=== PATIENT | female | born 1985 | race Caucasian/White ===

== ENCOUNTER 2021-09-23 14:06 | Outpatient (CLI) | payer OTHER, SELFPAY ==
--- NOTE | 2021-09-23 14:11 | MM_ITS ---
WS: [id number] BILATERAL DIGITAL DIAGNOSTIC MAMMOGRAM MAMMOGRAPHY WITH CAD CLINICAL INFORMATION: RT BREAST LUMP 11 OCLOCK POSITION HISTORY: Right breast lump. Right breast pain. History of recent weight loss. COMPARISON: None. TECHNIQUE: Bilateral CC, MLO, and ML views. FINDINGS: The breasts are composed of extremely dense tissue, which can limit the detection of small underlying mass lesions. Palpable marker upper outer right breast. Dense underlying parenchymal tissue. Ultraso und right breast is pending. Dense breast parenchyma is otherwise unremarkable bilaterally. A few incidental punctate calcificatio ns bilaterally. ULTRASOUND BREAST RIGHT TECHNIQUE: Ultrasound right breast focused area of concern. CLINICAL INFORMATION: RT BREAST LUMP 11 OCLOCK POSITION FINDINGS: Ultrasound right breast in the area of palpable concern 11:00 position. Dense echogenic tissue with m ixed echogenicity nodule measuring 5.8 x 1.5 x 4.3 cm likely represents lipoma or fibroadenolipoma. F indings are probably benign and recommend 6 month follow-up to confirm stability. MM/[place] [id number] IMPRESSION: BI-RADS: 3-Probably Benign FOLLOW UP: 6 Month Follow-up RECOMMEND 6 MONTH FOLLOW-UP RIGHT DIAGNOSTIC MAMMOGRAPHY AND ULTRASOUND TO CONF IRM STABILITY.
== END 2021-09-23 14:07 | disposition home or self-care (01) ==
LOC: RADSHAW 14:07
DX: N63.11 Unspecified lump in the right breast, upper outer quadrant (principal); N64.4 Mastodynia
CPT/HCPCS: 76642; 77066

== ENCOUNTER 2022-04-14 13:08 | Outpatient (CLI) | payer OTHER, SELFPAY ==
--- NOTE | 2022-04-14 13:22 | MM_ITS ---
WS: [id number] RIGHT 3D TOMOSYNTHESIS DIGITAL MAMMOGRAPHY WITH CAD CLINICAL INFORMATION: 6 MO F/U RT LUMP COMPARISON: September 23, 2021 TECHNIQUE: 3 views of the right breast were obtained. FINDINGS: The right breast is composed of heterogeneous fibroglandular density tissue, which can limit the dete ction of small underlying mass lesions. Palpable marker upper outer RIGHT breast. Dense underlying pa renchymal tissue with suggestion of dense ovoid lesion appears stable. Breast parenchyma appears unch anged. Ultrasound is pending. ULTRASOUND BREAST RIGHT TECHNIQUE: Ultrasound right breast focused area of concern. CLINICAL INFORMATION: 6 MO F/U RT LUMP COMPARISON: September 23, 2021 FINDINGS: Ultrasound RIGHT breast in the area of concern at the 11:00 position 3 to 4 cm from the nipple. Dense underlying parenchymal tissue. Incidental benign simple cyst at the 11:00 position 4 cm from the nip ple measuring 6.5 x 4.4 x 7.1 mm. Mixed echogenicity subcutaneous lesion measuring 5.2 x 4.8 x 1.5 cm in the superficial soft tissues a t the 11:00 position 4 cm from the nipple likely representing lipoma or fibroadenolipoma. This is unchanged since September 23, 2021 and probably benign. Considering this lesion is palpable Re commend additional six-month follow-up to confirm stability for at least 12-18 months. MM/[place] [id number] BI-RADS: 3-Probably Benign FOLLOW UP: 6 Month Follow-up Recommend additional six-month follow-up RIGHT diagnostic mammography and ultra sound to confirm at least 12-18 month stability.
== END 2022-04-14 13:09 | disposition home or self-care (01) ==
LOC: RAD 13:09
PROVIDERS: Visit Provider Nurse Practitioner Family
DX: N63.11 Unspecified lump in the right breast, upper outer quadrant (principal); N60.01 Solitary cyst of right breast
CPT/HCPCS: 76642; 77061

== ENCOUNTER 2022-06-02 14:00 | Outpatient (CLI) | payer MEDICAID, SELFPAY ==
--- NOTE | 2022-06-02 14:12 | XR_ITS ---
WS: [id number] AP and lateral views of the neck, 06/02/2022 Clinical Data: M79.89 - Other specified soft tissue disorders Comparison: None. Findings: The soft tissues of the neck show no abnormal masses or calcifications. There is no prevertebral soft tissue swelling. The cervical vertebral bodies are unremarkable. The lung apices are normal. XR/XR soft tissue neck [id number] Impression: Negative AP and lateral soft tissue views of the neck
== END 2022-06-02 14:01 | disposition home or self-care (01) ==
LOC: RAD 14:01
PROVIDERS: PCP Registered Nurse; Visit Provider Registered Nurse
DX: M79.89 Other specified soft tissue disorders (principal)
CPT/HCPCS: 70360; 80053; 80061; 82306; 82607; 84443; 85025

== ENCOUNTER 2022-06-10 07:11 | Outpatient (CLI) | payer MEDICAID, SELFPAY ==
--- NOTE | 2022-06-10 07:15 | US_ITS ---
WS: [id number] THYROID ULTRASOUND HISTORY: M79.89 - Other specified soft tissue disorders COMPARISON: None available. Right lobe: 2.3 cm x 2.4 cm x 6.4 cm (w x ap x l). Volume: 18.3 cm3. Enlarged heterogeneous nodular thyroid. Majority of these nodules contain greater than 50% cystic com ponent. There is one nodule which is slightly more solid in the inferior pole of the RIGHT thyroid bu t spongiform in appearance. This nodule measures 1.0 x 1.0 x 1.4 cm. Left lobe: 3.0 cm x 2.6 cm x 5.2 cm (w x ap x l). Volume: 21.5 cm3. Enlarged thyroid. Multiple cystic masses throughout the gland. The largest nodule contains multiple c ysts. This nodule measures 2.7 x 2.8 x 3.7 cm and is in the mid gland. There are no echogenic foci. Isthmus: 0.3 cm. US/US thyroid [id number] IMPRESSION: 1. Enlarged bilateral gland with multi focal nodules. These nodules contain a large cystic components. Indicating a benign appearance. As some of these nodul es are more solid consider short-term follow-up. Recommend ultrasound follow-up in 6-12 months. If any of these nodules increase in size or become more solid fine-needle aspiration can be attempted. Majority of these nodules appear to be colloid cysts or spongiform nodules. 2. Favor this is probably a multinodular goiter.
== END 2022-06-10 07:12 | disposition home or self-care (01) ==
LOC: RAD 07:13
PROVIDERS: PCP Registered Nurse; Visit Provider Registered Nurse
DX: M79.89 Other specified soft tissue disorders (principal); E04.1 Nontoxic single thyroid nodule
CPT/HCPCS: 76536

== ENCOUNTER 2022-09-15 07:34 | Day surgery (SDC) | payer MEDICAID, SELFPAY ==
[2022-09-13 12:08] VITALS: BMI 22.3
[2022-09-15 08:04] VITALS: BP 97/71; PULSE 77; RESP 18; TEMP 36.5; O2SAT 100
[2022-09-15] MEDS: sodium chloride 0.9% 1,000 ML 30 ML IV (08:07)
[2022-09-15 08:08] LABS: OR HCG Qualitative Urine Negative (Negative)
--- NOTE | 2022-09-15 09:23 | P.HP_ITS ---
Providers/Chief Complaint Primary Care Provider: JUNAID Moscoso Chief Complaint: irritable bowel syndrome w/o diarrhea History of Present Illness Wendy Nicole is a 37 year old female here for EGD and colonoscopy Medications/Allergies Home Medications Medication Instructions Recorded Confirmed Last Taken Type alprazolam 1 mg tablet (Xanax) 1 mg PO TID PRN Anxiety 06/02/22 09/15/22 09/14/22 History multivitamin 1 tab PO DAILY 06/02/22 09/15/22 09/14/22 History omeprazole magnesium 20 mg 20 mg PO DAILY 06/02/22 09/15/22 09/14/22 History tablet,delayed release (Prilosec OTC) quetiapine 100 mg tablet (Seroquel) 100 mg PO BEDTIME 06/02/22 09/15/22 09/14/22 History quetiapine 400 mg tablet (Seroquel) 400 mg PO BEDTIME 06/02/22 09/15/22 09/14/22 History medroxyprogesterone 150 mg/mL 150 mg IM .every 3 mo 90 days #1 mL 08/09/22 09/15/22 07/26/22 Rx intramuscular suspension (Depo-Provera) ergocalciferol (vitamin D2) 50 mcg 50 mcg PO DAILY 90 days #12 tabs 08/10/22 09/15/22 09/14/22 Rx (2,000 unit) tablet cetirizine 10 mg capsule (Zyrtec) 10 mg PO DAILY 08/19/22 09/15/22 09/14/22 History venlafaxine 150 mg 300 mg PO DAILY 08/19/22 09/15/22 09/14/22 History capsule,extended release 24 hr cholecalciferol (vitamin D3) 50 2,000 unit PO DAILY 09/13/22 09/15/22 09/14/22 History mcg (2,000 unit) capsule Allergies Allergy/AdvReac Type Severity Reaction Status Date / Time milk Allergy unknown Verified 09/15/22 07:55 PFSH Acute PFSH: Medical History GERD (gastroesophageal reflux disease) History of fracture of right ankle IBS (irritable bowel syndrome) Migraine POTS (postural orthostatic tachycardia syndrome) Vitamin D insufficiency Surgical History History of ankle fusion RIGHT History of cholecystectomy History of esophagogastroduodenoscopy (EGD) Hx of colonoscopy Family History Mother Autoimmune disorder Grandmother Diabetes Stroke Cancer CHF (congestive heart failure) Grandfather Cancer Diabetes Social History Smoking and tobacco status: current every day smoker Alcohol intake: never Adopted: No Caregiver/support person: No Lives independently: No service: No Current occupational status: unemployed and disabled Sexually active: Yes Current gender identity: Female Vitals/I&O/Wt Last Vital Signs Temp 97.7 F 09/15/22 08:04 Pulse 77 09/15/22 08:04 Resp 18 09/15/22 08:04 BP 97/71 09/15/22 08:04 Pulse Ox 100 09/15/22 08:04 O2 Del Method 09/15/22 08:04 Weight last 48 hrs Weight 130 lb A&P Assessment and plan (1) GERD (gastroesophageal reflux disease): (2) IBS (irritable bowel syndrome): Plan EGD and colonoscopy Attestations Medical Necessity Statement*: home Coding Level of Care Code Acute Project Intern for g Fwd Diagnoses GERD (gastroesophageal reflux disease) K21.9 IBS (irritable bowel syndrome) K58.9
--- NOTE | 2022-09-15 10:01 | ANES.PREANE2 ---
Pre-Anesthetic Assessment Height/Weight: Height 1.63 m Weight 58.967 kg Temp Pulse Resp BP Pulse Ox O2 Del Method 97.7 F 77 18 97/71 100 09/15/22 08:04 09/15/22 08:04 09/15/22 08:04 09/15/22 08:04 09/15/22 08:04 09/15/22 08:04 Operation Date: 09/15/22 09:00 Proposed Procedures p EGD and colonoscopy [id number],59891,K58.9,IBS,K21.9,K59.00(Not Applicable) - Nate Pederson DO s Colonoscopy(Not Applicable) - Nate Pederson DO Familial anesthetic complications: none Was Beta Nelda taken within 24 hours: N/A Was Clonidine taken within 24 hours: N/A Last intake: Intake Last Liquid Date 09/14/22 Last Liquid Time 22:00 Last Solid Date 09/13/22 Last Solid Time 18:30 Social Tobacco and No alcohol Exam alert, oriented x 3, clear to auscultation bilaterally and regular rate & rhythm Airway Submandibular: within normal limits Cervical ROM: within normal limits Mallampati: Class II Dentition: false Pulmonary Chronic Obstructive Pulmonary Disease CV/HEM Arrythmia (POTS) GI Gastroesophageal Reflux Disease Neuropsych Anxiety and Depression Anesthetic Plan ASA status: 3 Anesthesia: MAC Medications/Allergies Home Medications Medication Instructions Recorded Confirmed Last Taken Type alprazolam 1 mg tablet (Xanax) 1 mg PO TID PRN Anxiety 06/02/22 09/15/22 09/14/22 History multivitamin 1 tab PO DAILY 06/02/22 09/15/22 09/14/22 History omeprazole magnesium 20 mg 20 mg PO DAILY 06/02/22 09/15/22 09/14/22 History tablet,delayed release (Prilosec OTC) quetiapine 100 mg tablet (Seroquel) 100 mg PO BEDTIME 06/02/22 09/15/22 09/14/22 History quetiapine 400 mg tablet (Seroquel) 400 mg PO BEDTIME 06/02/22 09/15/22 09/14/22 History medroxyprogesterone 150 mg/mL 150 mg IM .every 3 mo 90 days #1 mL 08/09/22 09/15/22 07/26/22 Rx intramuscular suspension (Depo-Provera) ergocalciferol (vitamin D2) 50 mcg 50 mcg PO DAILY 90 days #12 tabs 08/10/22 09/15/22 09/14/22 Rx (2,000 unit) tablet cetirizine 10 mg capsule (Zyrtec) 10 mg PO DAILY 08/19/22 09/15/22 09/14/22 History venlafaxine 150 mg 300 mg PO DAILY 08/19/22 09/15/22 09/14/22 History capsule,extended release 24 hr cholecalciferol (vitamin D3) 50 2,000 unit PO DAILY 09/13/22 09/15/22 09/14/22 History mcg (2,000 unit) capsule Allergies Allergy/AdvReac Type Severity Reaction Status Date / Time milk Allergy unknown Verified 09/15/22 07:55 Current Medications Generic Name Dose Route Start Last Admin Trade Name Freq PRN Reason Stop Dose Admin Sodium Chloride 1,000 mls @ 30 mls/hr 09/15/22 07:45 09/15/22 08:07 Sodium Chloride 0.9% IV 09/16/22 07:44 30 mls/hr .Q24H AVNI Administration PFSH Anesthesia Medical History GERD (gastroesophageal reflux disease) History of fracture of right ankle IBS (irritable bowel syndrome) Migraine POTS (postural orthostatic tachycardia syndrome) Vitamin D insufficiency Surgical History History of ankle fusion RIGHT History of cholecystectomy History of esophagogastroduodenoscopy (EGD) Hx of colonoscopy Family History Mother Autoimmune disorder Grandmother Diabetes Stroke Cancer CHF (congestive heart failure) Grandfather Cancer Diabetes Social History Smoking and tobacco status: current every day smoker Alcohol intake: never Adopted: No Caregiver/support person: No Lives independently: No service: No Current occupational status: unemployed and disabled Sexually active: Yes Current gender identity: Female Data Anesthesia Cardiac Studies: Holter Monitor 08/19/22
[2022-09-15 10:06] VITALS: BP 100/56; PULSE 96; RESP 18; TEMP 36.5; O2SAT 95
[2022-09-15 10:18] VITALS: BP 116/85; PULSE 95; RESP 18; TEMP 36.6; O2SAT 98
--- NOTE | 2022-09-15 17:46 | ANE.PACU2 ---
Inpatient post-anesthesia follow up: Airway intact: Yes Vital signs: Temperature 97.8 F Pulse Rate 95 Respiratory Rate 18 Blood Pressure 116/85 Pulse Oximetry 98 Oxygen Delivery Me thod Room Air Oxygen Flow Rate Fraction of Inspir ed Oxygen Hydration adequate: Yes Nausea and vomiting: No Pain level: 1 Mental status: Baseline
== END 2022-09-15 10:54 | disposition home or self-care (01) ==
PROVIDERS: Anesthesiology; PCP Registered Nurse; Visit Provider Surgery
PROC: 0DJ08ZZ Inspection of Upper Intestinal Tract, Via Natural or Artificial Opening Endoscopic (ICD-10-PCS; CPT 43235; principal; 2022-09-15 09:00)
PROC: 0DJD8ZZ Inspection of Lower Intestinal Tract, Via Natural or Artificial Opening Endoscopic (ICD-10-PCS; CPT 45378; 2022-09-15 09:00)
DX: K52.9 Noninfective gastroenteritis and colitis, unspecified (principal); K21.9 Gastro-esophageal reflux disease without esophagitis; F17.210 Nicotine dependence, cigarettes, uncomplicated; K29.50 Unspecified chronic gastritis without bleeding; B96.81 Helicobacter pylori [H. pylori] as the cause of diseases classified elsewhere; K62.89 Other specified diseases of anus and rectum; K64.8 Other hemorrhoids; J44.9 Chronic obstructive pulmonary disease, unspecified
CPT/HCPCS: 43239; 45380; 81025; 82274; 83630; 84703; 87493; 87506; 88305; 88342; J2704; J3490; J7030

== ENCOUNTER 2022-09-20 13:18 | Outpatient (CLI) | payer MEDICAID, SELFPAY ==
--- NOTE | 2022-09-20 13:45 | USCV_ITS ---
Wendy Nicole Age: 37 Gender: F : 1985 Exam Date: 09/20/2022 13:40 Ordering Phys: Mamadou Malik M.D ([email or web address]) Technologist: Tonya Oneill Exam Location: [facility] [place] Indication: Sob, CP BP: 82 / 64 HR: 66 Rhythm: Sinus Technical Quality: Good MEASUREMENTS (Male / Female) Normal Values 2D ECHO LV Diastolic Diameter PLAX 4.4 cm 4.2 - 5.9 / 3.9 - 5.3 cm LV Systolic Diameter PLAX 2.7 cm IVS Diastolic Thickness 0.8 cm 0.6 - 1.0 / 0.6 - 0.9 cm IVS Systolic Thickness 1.5 cm LVPW Diastolic Thickness 1.0 cm 0.6 - 1.0 / 0.6 - 0.9 cm LVPW Systolic Thickness 1.3 cm LVOT Diameter 2.1 cm LV Ejection Fraction 2D Teich 70.4 % LV Ejection Fraction MOD 2C 66.8 % LV Ejection Fraction 2C AL 66.5 % LA Diameter 2.1 cm LA Width 2.7 cm LA Height 3.7 cm RA Width 3.6 cm RA Height 4.0 cm Aorta at Sinotubular Diameter 3.5 cm IVC Diameter 1.1 cm M-MODE MV E Point Septal Separation 1.0 cm DOPPLER AV Peak Velocity 101.0 cm/s LVOT Peak Velocity 86.0 cm/s AV Area Cont Eq vti 3.0 cm squared AV Area Cont Eq pk 2.9 cm squared MV Peak Velocity 73.0 cm/s MV Area PHT 2.8 cm squared Mitral E to A Ratio 1.6 MV E' Velocity 42.5 cm/s Mitral E to MV E' Ratio 4.7 Mitral E to LV E' Lateral Ratio 4.4 Mitral E to LV E' Septal Ratio 5.1 TR Peak Velocity 86.0 cm/s TR Peak Gradient 3.0 mmHg Right Atrial Pressure 3.0 mmHg Pulmonary Artery Systolic Pressu 6.0 mmHg RV Acceleration Time 0.2 s RV Ejection Time 0.3 s RV AcT/ET 0.5 FINDINGS Left Ventricle Normal left ventricular size, systolic function and wall thickness, with no regional wall motion abnormalities. Left ventricular ejection fraction is estimated at 60 %. Normal diastolic function. Right Ventricle Normal right ventricular size and systolic function. Right ventricular systolic pressure 6 mmHg. Right Atrium Normal right atrial size. Left Atrium Normal left atrial size. Mitral Valve Structurally normal mitral valve. No mitral valve stenosis. Trace mitral valve regurgitation. Aortic Valve Probably trileaflet aortic valve. No aortic valve stenosis. No aortic valve regurgitation. Tricuspid Valve Structurally normal tricuspid valve. No significant tricuspid valve regurgitation. Pulmonic Valve Structurally normal pulmonic valve. Trace pulmonary valve regurgitation. Pericardium No pericardial effusion. Aorta Normal size aortic root and proximal ascending aorta. IVC Normal IVC dimension with >50% respiratory change of the inferior vena cava. CONCLUSIONS 1. Normal left ventricular size, systolic function and wall thickness, with no regional wall motion abnormalities. Left ventricular ejection fraction is estimated at 60 %. Normal diastolic function. 2. Normal right ventricular size and systolic function. 3. Normal pulmonary artery pressure. 4. No prior similar studies to compare. Destiney Goemz MD (Electronically Signed) Final Date: 21 September 2022 13:56 S
== END 2022-09-20 13:19 | disposition home or self-care (01) ==
LOC: RAD 13:19
PROVIDERS: PCP Registered Nurse; Visit Provider Internal Medicine
DX: R06.02 Shortness of breath (principal); R07.9 Chest pain, unspecified
CPT/HCPCS: 93306

== ENCOUNTER 2022-09-21 10:03 | Outpatient (CLI) | payer MEDICAID, SELFPAY ==
--- NOTE | 2022-09-21 | ECG_ITS ---
[facility] Test Date: 2022-09-21 Pat Name: Wendy Nicole Department: Room: Gender: Female Video Rental Clerk: : 1985 Requested By: Mamadou Malik Order Number: [id number] Shaye MD: Destiney Gomez M.D. Interpretive Statements NAME OF STUDY: EXERCISE SESTAMIBI STRESS TEST INDICATION: Chest Pain; Shortness of Breath Baseline blood pressure of 103/64 mm Hg, heart rate of 66 beats per minute and oxygen saturation of 97%. EKG showed normal sinus rhythm, normal axis with normal ST-Ts. The patient exercised for 7 minutes on a standard Kuldeep protocol. Patient attained a maximum heart rate of 168 beats per minute(92% of the maximum predicted heart rate) with a blood pressure at the peak exercise of 141/63 mm Hg and oxygen saturation 95%. The EKG at the peak exercise revealed sinus tachycardia with no significant ST-T wave changes. Patient did not have any chest pain or any significant arrhythmis with the exercise During the recovery phase, there were no new changes. Blood pressure at the end of the recovery phase was 100/65 mm Hg with a heart rate of of 95 beats per minute and oxygen saturation of 97%. CONCLUSION: 1. Normal EKG response to treadmill exercise. 2. No exercise-induced chest pain or cardiac arrhythmia. 3. Good exercise tolerance, attained a maximum of 10.2 METs. 4. Baseline normal blood pressure with normal response to exercise. 5. Perfusion scan will be documented separately. Electronically Signed On 09-21-2022 12:59:44 CDT by Destiney Gomez M.D. [id number]
--- NOTE | 2022-09-21 10:09 | NMCV_ITS ---
NM pedro luis perf SPECT r/s* [id number] Wendy Nicole Age: 37 Gender: F : 1985 Exam Date: 09/21/2022 10:09 Ordering Phys: Mamadou Malik M.D ([email or web address]) Technologist: MARITZA Worthy Exam Location: [facility] Indications: CHEST PAIN, SHORTNESS OF BREATH STRESS TEST Please see separate stress test report in [facility] for full findings IMAGE PROTOCOL Rest/Stress 1 Exercise Day Radiopharmaceutical Dose (mCi) Administration Site Administered by Rest: Tc-99m 10.6 IV MARITZA Hathaway Sestamibi Stress:Tc-99m 32.4 IV MARITZA Hathaway Sestamileslie Rest: 21-Sep-2022 60 Discovery 630 Stress: 21-Sep-2022 30 Discovery 630 Radiopharmaceutical was injected at 87 % maximum heart rate. Images obtained in supine and prone position. SPECT RESULTS Technical Quality: Excellent Raw Data Analysis: Normal Image Corrections: No attenuation or motion correction applied Summed Stress Score: 0 Summed Rest Score: 0 Summed Difference Score: 0 PERFUSION FINDINGS SPECT images demonstrate homogeneous tracer distribution throughout the myocardium. FUNCTIONAL RESULTS (calculated via Gated SPECT) Stress Image LV EF (%): 71 Stress EDV (mL):80 TID: 0.98 Stress ESV (mL):23 FUNCTIONAL FINDINGS: The left ventricle is normal in size. Transient Ischemia Dilatation of 0.98. There is normal left ventricular systolic function. The left ventricular ejection fraction is normal with a value of 71%. There is normal left ventricular wall thickening. IMPRESSIONS 1. Myocardial perfusion imaging is normal. 2. Overall left ventricular systolic function is normal without regional wall motion abnormalities, LVEF=71%. 3. No EKG changes with exercise. Refer to separate report for details Destiney Gomez MD (Electronically Signed) Final Date: 21 September 2022 12:56 S
[2022-09-21 10:25] VITALS: BMI 23.8
--- NOTE | 2022-09-21 10:29 | PC.NURSE ---
Patient has not had a tubal or hysterectomy. Had a negative urine HCG 09/15/2022 at this hospital.
[2022-09-21 12:04] VITALS: BP 100/65; PULSE 99
== END 2022-09-21 10:04 | disposition home or self-care (01) ==
LOC: CDL 10:05
PROVIDERS: PCP Registered Nurse; Visit Provider Internal Medicine
DX: R06.02 Shortness of breath (principal)
CPT/HCPCS: 78452; 93017; A9500

== ENCOUNTER 2022-10-11 12:47 | Outpatient (CLI) | payer MEDICAID, SELFPAY ==
--- NOTE | 2022-10-11 13:06 | MM_ITS ---
WS: [id number] RIGHT 3D TOMOSYNTHESIS DIGITAL MAMMOGRAPHY WITH CAD CLINICAL INFORMATION: 6 MONTH F/U COMPARISON: April 14, 2022, and September 23, 2021 TECHNIQUE: 3 views of the right breast were obtained. FINDINGS: The right breast is composed of heterogeneous fibroglandular density tissue, which can limit the dete ction of small underlying mass lesions. Persistent dense ovoid parenchymal lesion upper outer RIGHT b reast is similar to previous and slightly less prominent today. No other significant interval changes . Ultrasound described below. ULTRASOUND BREAST RIGHT TECHNIQUE: Ultrasound right breast focused area of concern. CLINICAL INFORMATION: 6 MONTH F/U FINDINGS: Previously described dense echogenic tissue with mixed echogenicity nodule at the 11:00 position likely representing a lipoma or fibroadenolipoma appears sl ightly smaller today measuring 4.5 x 1.6 x 4.1 cm, 4 cm from the nipple. This is stable since 2020 Benign simple cyst at the 11:00 position 4 cm from the nipple measuring 6 x 5 x 5 mm. MM/[place] [id number] IMPRESSION: BI-RADS: 2-Benign FOLLOW UP: 1 Year Follow-up Recommend return to annual screening mammography.
== END 2022-10-11 12:48 | disposition home or self-care (01) ==
LOC: RAD 12:49
PROVIDERS: PCP Registered Nurse; Visit Provider Registered Nurse
DX: N63.10 Unspecified lump in the right breast, unspecified quadrant (principal)
CPT/HCPCS: 76642; 77061; G0279

== ENCOUNTER 2023-02-11 07:44 | Outpatient (CLI) | payer MEDICAID, SELFPAY ==
--- NOTE | 2023-02-11 07:45 | US_ITS ---
WS: [id number] ULTRASOUND THYROID TECHNIQUE: Ultrasound of the thyroid. CLINICAL INFORMATION: thyroid goiter COMPARISON: 2021 FINDINGS: Thyroid: Again seen are multiple bilateral thyroid nodules likely due to multinodular goiter. Multipl e complex nodules are similar in appearance compared to the prior examination. LEFT inferior pole thy roid nodule was selected for FNA due to increased internal nodularity with increased vascularity comp ared to previous. Right thyroid lobe: 5.6 cm x 2.2 cm x 1.8 cm Complex cystic RIGHT mid thyroid nodule is unchanged measuring 1.1 x 0.9 x 1.5 CM. Well-circumscribed spongiform nodule RIGHT inferior thyroid measuring 1.1 x 1.2 x 1.3 cm is unchanged . Left thyroid lobe: 6.5 cm x 3.1 cm x 2.4 cm. Spongiform LEFT mid thyroid nodule measuring 2.9 x 2.2 x 3.8 cm is unchanged. Complex cystic and solid LEFT inferior pole thyroid nodule with increased soft tissue nodularity toda y. This also demonstrates significant increased internal vascularity compared to previous. This nodul e was selected for FNA today and measures approximately 1.9 x 1.6 x 1.7 CM. Isthmus: 0.3 mm. Cervical lymphadenopathy: None. US/US thyroid [id number] IMPRESSION: 1. Enlarged thyroid with multiple complex cystic and solid nodules likely due to multinodular goiter 2. LEFT lower pole thyroid nodule was selected for biopsy due to interval incr ease in internal soft tissue nodularity with increased vascularity. 3. Remaining nodules are unchanged in appearance compared to previous. 4. Recommend 12 month ultrasound follow-up.
--- NOTE | 2023-02-11 08:30 | US_ITS ---
WS: [id number] ULTRASOUND THYROID FNA CLINICAL INFORMATION: thyroid goiter TECHNIQUE: Ultrasound-guided FNA FINDINGS: The procedure including risks, benefits, and complications were discussed with the patient who agreed to proceed. Timeout was performed. Using sterile technique patient was prepped and draped in usual sterile fashion. After 1% lidocaine, using ultrasound guidance, a 25-gauge needle was advanc ed into the LEFT inferior complex thyroid nodule. 5 passes were made with active aspiration. Patholog y was present for slide preparation. No immediate complications. Patient remained in the ultrasound suite 10 minutes postprocedure with intermittent ultrasound to ens ure no hematoma. No hematoma 10 minutes postprocedure. US/US biopsy/FNA thyroid [id number] IMPRESSION: 1. Uncomplicated ultrasound-guided thyroid FNA complex LEFT inferior thyroid l obe nodule 2. Cytology is pending.
== END 2023-02-11 07:45 | disposition home or self-care (01) ==
LOC: RAD 07:46
PROVIDERS: PCP Registered Nurse; Visit Provider Otolaryngology
DX: E04.2 Nontoxic multinodular goiter (principal)
CPT/HCPCS: 10005; 76536; 88173

== ENCOUNTER 2023-05-05 09:05 | Outpatient (CLI) | payer MEDICAID, SELFPAY | END 2023-05-05 09:06 | disposition home or self-care (01) | LOC: RT 09:05 | PROVIDERS: PCP Registered Nurse; Visit Provider Internal Medicine | DX: R06.02 Shortness of breath (principal); F17.210 Nicotine dependence, cigarettes, uncomplicated | CPT/HCPCS: 94010; 94726; 94729 ==

== ENCOUNTER → 2023-06-22 11:44 | Outpatient (BNVA) | payer MEDICAID, SELFPAY | PROVIDERS: PCP Registered Nurse; Visit Provider Registered Nurse | DX: Z00.00 Encounter for general adult medical examination without abnormal findings (principal) | CPT/HCPCS: 80053; 80061; 85025 ==

== ENCOUNTER 2023-10-19 11:13 | Outpatient (CLI) | payer MEDICARE, SELFPAY ==
--- NOTE | 2023-10-19 11:17 | MM_ITS ---
WS: [id number] Bilateral screening 3D tomosynthesis digital mammogram, 10/19/2023 Clinical Data: Z12.31 - Encounter for screening mammogram for malignant ... Comparison: 10/11/2022, 04/14/2022, 09/23/2021 Findings: The breast parenchymal pattern shows extreme density. The right breast shows no change. The left gilda st shows a small area of clustered calcifications in the superior aspect on the MLO view. No abnormal ities are seen on the left breast cc view.. No spiculated masses are seen there are no secondary sign s of carcinoma.. Impression: 1. Small area of calcifications in superior aspect of the left breast and recommend ML view and repe at MLO and cc views of the left breast. Left breast ultrasound may be helpful. 2. Negative right breast MM/[place] [id number] BIRADS: 0-Incomplete: Need additional imaging evaluation FOLLOW UP: See Report The CAD wash test checker was used.
== END 2023-10-19 11:14 | disposition home or self-care (01) ==
LOC: RAD 11:13
PROVIDERS: PCP Family Medicine; Visit Provider Family Medicine
DX: Z12.31 Encounter for screening mammogram for malignant neoplasm of breast (principal); R92.1 Mammographic calcification found on diagnostic imaging of breast
CPT/HCPCS: 77063; 77067

== ENCOUNTER 2023-10-27 13:22 | Outpatient (CLI) | payer MEDICARE, SELFPAY ==
--- NOTE | 2023-10-27 13:32 | MM_ITS ---
WS: [id number] Left breast diagnostic 3D tomosynthesis digital mammogram, 10/27/2023 Clinical Data: ABNORMAL MAMMO Comparison: Mammogram, 10/19/2023 Findings: There are clustered calcifications in the upper outer quadrant left breast but no masses associated w ith this. There are no other left breast calcifications. There are no secondary signs of carcinoma. Impression: 1. Small cluster of calcifications in upper outer quadrant left breast which are probably benign. 2. Left breast ultrasound will be performed. MM/[place] [id number] BIRADS: 3-Probably Benign FOLLOW UP: 6 Month Follow-up The CAD repairer and checker was used.
--- NOTE | 2023-10-27 13:32 | US_ITS ---
WS: [id number] Left breast ultrasound, 10/27/2023 Clinical Data: ABNORMAL MAMMO Comparison: Mammogram, 10/27/2023 Findings: No spiculated masses nor cysts are seen in the upper outer quadrant of the left breast at the 12:00 t o 2 o'clock position. The breast parenchymal pattern shows only normal tissue. Impression: 1. Probable benign calcifications in upper outer quadrant left breast. 2. Recommend 6-month follow-up with left breast mammogram US/US breast LT limited* [id number] BIRADS: 3-Probably Benign FOLLOW UP: 6 Month Follow-up
== END 2023-10-27 13:23 | disposition home or self-care (01) ==
LOC: RAD 13:22
PROVIDERS: PCP Family Medicine; Visit Provider Family Medicine
DX: R92.8 Other abnormal and inconclusive findings on diagnostic imaging of breast (principal); R92.1 Mammographic calcification found on diagnostic imaging of breast
CPT/HCPCS: 76642; 77061; G0279

== ENCOUNTER → 2023-11-01 15:10 | Outpatient (BNVA) | payer MEDICARE, SELFPAY | PROVIDERS: PCP Family Medicine; Visit Provider Internal Medicine | DX: I49.8 Other specified cardiac arrhythmias (principal); I49.9 Cardiac arrhythmia, unspecified; Z72.0 Tobacco use | CPT/HCPCS: 99214 ==

== ENCOUNTER → 2023-11-03 15:18 | Outpatient (BNVA) | payer MEDICARE, SELFPAY | PROVIDERS: PCP Family Medicine; Visit Provider Surgery | DX: K58.9 Irritable bowel syndrome, unspecified (principal); E04.2 Nontoxic multinodular goiter; K59.00 Constipation, unspecified | CPT/HCPCS: 36415; 80053; 84439; 84443; 85025; 99214 ==

== ENCOUNTER 2023-11-04 12:49 | Outpatient (CLI) | payer MEDICARE, SELFPAY | END 2023-11-04 12:50 | disposition home or self-care (01) | LOC: LAB 12:50 | PROVIDERS: PCP Family Medicine; Visit Provider Surgery | DX: K58.9 Irritable bowel syndrome, unspecified (principal); E04.2 Nontoxic multinodular goiter; K59.00 Constipation, unspecified | CPT/HCPCS: 87338 ==

== ENCOUNTER → 2024-05-10 15:45 | Outpatient (BNVA) | payer MEDICARE, OTHER, SELFPAY | PROVIDERS: PCP Family Medicine; Visit Provider Internal Medicine Cardiovascular Disease | DX: G90.A Postural orthostatic tachycardia syndrome [POTS] (principal) | CPT/HCPCS: 99214 ==

== ENCOUNTER 2024-06-13 00:40 | Emergency (ER) | payer MEDICARE, MEDICAID, SELFPAY ==
[2024-06-13 00:45] VITALS: BP 99/67; PULSE 103; RESP 18; TEMP 37; O2SAT 94; BMI 24.1
--- NOTE | 2024-06-13 00:51 | ED_ITS ---
HPI - Extremity Problem 2 General: Chief complaint: Extremity Problem,Nontraumatic Stated complaint: Right lower leg/Ankle Time Seen by Provider: 06/13/24 00:47 History of Present Illness: Patient presents to the ER with complaints of right ankle swelling. She is afraid she has a blood clot. Patient says her mother and sister have clotting disorders with get clots more frequently. She has never been tested. Patient stated today she noticed her ankle massively swollen to the point she was a barely able to get her ankle it off then she sat down elevated above her heart put ice on it and it went down but just essentially come up within an hour or 2 it was massively swollen again. Patient denies any chest pain shortness of breath. Patient is on no anticoagulation. Patient does have POTS syndrome Review of Systems 2 General: Reports: 10 or more systems reviewed and unremarkable except in HPI and below PFSH ED 2 PFSH: Medical History Psychiatric care Helicobacter pylori gastritis Migraine POTS (postural orthostatic tachycardia syndrome) Vitamin D insufficiency IBS (irritable bowel syndrome) GERD (gastroesophageal reflux disease) History of fracture of right ankle Surgical History History of ankle fusion RIGHT Hx of colonoscopy History of esophagogastroduodenoscopy (EGD) History of cholecystectomy Family History Mother Autoimmune disorder Grandmother Diabetes Stroke Cancer Congestive heart failure (CHF) Grandfather Cancer Diabetes Social History Smoking and tobacco/nicotine status: current every day tobacco/nicotine user Alcohol intake: never Substance/Drug Use: current Substance/Drug use frequency: daily Adopted: No Caregiver/support person: No Lives independently: No service: No Current occupational status: unemployed and disabled Sexually active: Yes Do you think of yourself as: Straight/Heterosexual Current gender identity: Female Physical Exam 2 Const: COMMON NORMALS: no acute distress, average body habitus, patient oriented x3, no limitations, healthy appearing, alert and well nourished HENMT: COMMON NORMALS: normocephalic, atraumatic, hearing grossly normal bilaterally, external ears normal, Normal external nose present and moist oral mucous membranes HEAD & SCALP: normocephalic and atraumatic NOSE: Normal external nose present EXTERNAL EAR: Yes external ears normal Neck/C-Spine: COMMON NORMALS: full ROM, no lymphadenopathy, supple, no meningeal signs, no JVD and Thyroid normal THYROID: Thyroid normal Chest: COMMONS NORMALS: normal inspection of the chest and normal palpation of entire chest wall Resp: COMMON NORMALS: normal respiratory effort, No retractions, No use of accessory muscles and clear to auscultation bilaterally AUSCULTATION: clear to auscultation bilaterally Cardio: COMMON NORMALS: no JVD, regular rate, regular rhythm, S1 normal heart sound present, S2 normal heart sound present, No gallops present (Cardio), No clicks present (Cardio), No murmurs present (Cardio) and No rub (Cardio) R ATE: regular rate RHYTHM: regular rhythm HEART SOUNDS: S1 normal heart sound present and S2 normal heart sound present GI: COMMON NORMALS: Normal to inspection, nondistended, normoactive bowel sounds present, Soft to palpation, non-tender, No hepatosplenomegaly present and no masses PALPATION: Yes Soft to palpation and Yes No hepatosplenomegaly present Extremity: NARRATIVE EXTREMITY EXAM: Mildly swollen right ankle, no pitting edema, Neuro: COMMON NORMALS: patient oriented x3 SENSORIUM/ORIENTATION: Yes alert MENINGEAL SIGNS: Yes no meningeal signs Course 2 Vital Signs: Vital signs: Vital Signs Temperature 98.6 F 06/13/24 02:48 Pulse Rate 103 H 06/13/24 02:48 Respiratory Rate 18 06/13/24 02:48 Blood Pressure 99/67 06/13/24 02:48 Pulse Oximetry 94 06/13/24 02:48 Oxygen Delivery Me thod Room Air 06/13/24 00:45 MDM - Extremity (Nontraumatic) Medical Decision Making Lab work included CBC CMP and D-dimer all of which essentially negative. These results was discussed with the patient. Patient be discharged home to follow-up with her PCP for further evaluation and testing. Lab Data 06/13/24 01:48 06/13/24 01:48 Laboratory Results WBC 6.56 10^3/uL (3.29-11.43) 06/13/24 01:48 RBC 4.00 10^6/uL (3.85-5.65) 06/13/24 01:48 Hgb 13.30 g/dL (11.27-16.99) 06/13/24 01:48 Hct 40.1 % (36-47) 06/13/24 01:48 MCV 100.3 fl (85-98) H 06/13/24 01:48 MCH 33.3 pg (27-33) H 06/13/24 01:48 MCHC 33.2 g/dL (30-55) 06/13/24 01:48 RDW 11.9 % (12.1-15.1) L 06/13/24 01:48 Plt Count 252 10^3/cmm (157-399) 06/13/24 01:48 MPV 9.3 fL (7.4-10.4) 06/13/24 01:48 Neut % (Auto) 56.3 % 06/13/24 01:48 Lymph % (Auto) 35.4 % 06/13/24 01:48 [place] % (Auto) 7.0 % 06/13/24 01:48 Eos % (Auto) 0.6 % 06/13/24 01:48 Baso % (Auto) 0.5 % 06/13/24 01:48 Neut # (Auto) 3.70 10^3/uL (1.8-7.7) 06/13/24 01:48 Lymph # (Auto) 2.3 10^3/uL (0.8-4.8) 06/13/24 01:48 [place] # (Auto) 0.5 10^3/uL (0.2-0.9) 06/13/24 01:48 Eos # (Auto) 0.0 10^3/uL (0.0-0.8) 06/13/24 01:48 Baso # (Auto) 0.0 10^3/uL (0.0-0.1) 06/13/24 01:48 Nucleated RBC % (auto) 0 % 06/13/24 01:48 Nucleated RBCs # 0.0 /100WBC 06/13/24 01:48 D-Dimer 0.59 ug/mLFEU (0-0.59) 06/13/24 01:48 Sodium 139 mmol/L (136-145) 06/13/24 01:48 Potassium 4.1 mmol/L (3.5-5.1) 06/13/24 01:48 Chloride 107 mmol/L (98-107) 06/13/24 01:48 Carbon Dioxide 22 mmol/L (22-29) 06/13/24 01:48 Anion Gap 14.1 (5-19) 06/13/24 01:48 BUN 8 mg/dL (6-20) 06/13/24 01:48 Creatinine 0.9 mg/dL (0.5-0.9) 06/13/24 01:48 GFR Calculation 69.7 mL/min (90-130) L 06/13/24 01:48 Glucose 98 mg/dL (65-115) 06/13/24 01:48 Calculated Osmolality 286 mOsm/kg (285-295) 06/13/24 01:48 Calcium 9.3 mg/dL (8.5-10.5) 06/13/24 01:48 Total Bilirubin 0.4 mg/dL (0.15-1.2) 06/13/24 01:48 AST 13 U/L (0-32) 06/13/24 01:48 ALT 9 U/L (0-33) 06/13/24 01:48 Alkaline Phosphatase 70 U/L (35-105) 06/13/24 01:48 Total Protein 6.4 g/dL (6.6-8.7) L 06/13/24 01:48 Albumin 4.0 g/dL (3.5-5.2) 06/13/24 01:48 Globulin 2.4 g/dL (1.3-4.6) 06/13/24 01:48 No radiology studies performed this visit Discharge Plan Discharge Patient Disposition: Home Clinical Impression: Edema of right ankle Condition: Stable Prescriptions: No Action multivitamin Tablet 1 tab PO DAILY alprazolam [Xanax] 1 mg tablet 1 mg PO TID PRN (Reason: Anxiety) quetiapine [Seroquel] 400 mg tablet 400 mg PO BEDTIME quetiapine [Seroquel] 100 mg tablet 100 mg PO BEDTIME Belsomra 20 mg tablet PO ivabradine 5 mg tablet 5 mg PO BID Qty: 180 3RF Rx Instructions: must administer with a meal/food Zyrtec 10 mg capsule 10 mg PO DAILY albuterol sulfate 90 mcg/actuation HFA aerosol inhaler 1 inh inhalation QID PRN (Reason: shortness of breath or wheezing) 30 Days Qty: 8.5 0RF cholecalciferol (vitamin D3) 50 mcg (2,000 unit) capsule 2,000 unit PO DAILY Qty: 90 0RF medroxyprogesterone [Depo-Provera] 150 mg/mL suspension 150 mg IM .every 3 mo 90 Days Qty: 1 2RF Rx Instructions: Will need anytime after 10/10 pantoprazole 40 mg tablet,delayed release (DR/EC) See Rx Instructions .ROUTE .COMPLEX Qty: 60 2RF Dose Instruction: TAKE ONE TABLET BY MOUTH TWICE DAILY Rx Instructions: TAKE ONE TABLET BY MOUTH TWICE DAILY isosorbide mononitrate 30 mg tablet extended release 24 hr See Rx Instructions .ROUTE .COMPLEX Qty: 300 0RF Dose Instruction: TAKE 1 TABLET BY MOUTH DAILY Rx Instructions: TAKE 1 TABLET BY MOUTH DAILY midodrine 10 mg tablet 10 mg PO BID Qty: 270 3RF Rx Instructions: do not give last dose of day after 6PM or within 4 hrs of bedtime Discharge Orders: Discharge ED (Routine); Ordered 06/13/24 Ordered By: Jerel Bray Referrals: Tl Cline MD [Primary Care Provider] - 1 week Patient Instructions: Edema (ED) Activity Restrictions/Additional Instructions: Thank you for choosing [facility] for your healthcare needs today. Please realize that you were seen in the emergency department and that we are providing you with an emergency medical screening exam and this may not be a complete and all exclusive of all testing and/or medical workup we may need to determine your element or severity of your illness. It is very important that you follow-up as instructed with your primary care provider or specialist for the additional evaluation and to discuss your medical treatment plan. You may return to the emergency department should you have concerns or if your condition changes or worsens in any way. Coding Level of Care Code ED Heel Scourer for Esau Miranda
[2024-06-13 02:02] LABS: Basophils % 0.5 %; Eosinophils % 0.6 %; Hematocrit 40.1 % (36-47); Lymphocytes # 2.3 10^3/uL (0.8-4.8); Lymphocytes % 35.4 %; Mean Corpuscular HGB Conc 33.2 g/dL (30-55); Mean Corpuscular Hemoglobin 33.3 pg (27-33); Mean Corpuscular Volume 100.3 fl (85-98); Mean Platelet Volume 9.3 fL (7.4-10.4); Monocytes # 0.5 10^3/uL (0.2-0.9); Neutrophils % 56.3 %; Nucleated Red Blood Cells % 0 %; Platelet Count 252 10^3/cmm (157-399); Red Cell Distribution Width 11.9 % (12.1-15.1); White Blood Count 6.56 10^3/uL (3.29-11.43)
[2024-06-13 02:18] LABS: Alanine Aminotransferase 9 U/L (0-33); Alkaline Phosphatase 70 U/L (35-105); Anion Gap 14.1 (5-19); Aspartate Amino Transferase 13 U/L (0-32); Blood Urea Nitrogen 8 mg/dL (6-20); Calcium 9.3 mg/dL (8.5-10.5); Carbon Dioxide 22 mmol/L (22-29); Chloride 107 mmol/L (98-107); Creatinine Clr Calc Pharmacy 80.1643; Globulin 2.4 g/dL (1.3-4.6); Glomerular Filtration Rate 69.7 mL/min (90-130); Glucose 98 mg/dL (65-115); Osmolality Calculated 286 mOsm/kg (285-295); Potassium 4.1 mmol/L (3.5-5.1); Sodium 139 mmol/L (136-145); Total Bilirubin 0.4 mg/dL (0.15-1.2); Total Protein 6.4 g/dL (6.6-8.7)
[2024-06-13 02:32] LABS: D Dimer 0.59 ug/mLFEU (0-0.59)
[2024-06-13 02:48] VITALS: BP 99/67; PULSE 103; RESP 18; TEMP 37; O2SAT 94
== END 2024-06-13 02:49 | disposition home or self-care (01) ==
PROVIDERS: Emergency Provider Emergency Medicine; PCP Pediatrics
DX: R60.0 Localized edema (principal); Z72.0 Tobacco use
CPT/HCPCS: 80053; 85025; 85378; 99283

== ENCOUNTER → 2024-06-28 13:00 | Outpatient (BNVA) | payer MEDICARE, MEDICAID, SELFPAY | PROVIDERS: PCP Pediatrics; Visit Provider Nurse Practitioner Family | DX: G90.A Postural orthostatic tachycardia syndrome [POTS] (principal); I87.2 Venous insufficiency (chronic) (peripheral) | CPT/HCPCS: 99214 ==

== ENCOUNTER 2024-07-24 14:00 | Outpatient (CLI) | payer MEDICARE, MEDICAID, SELFPAY ==
--- NOTE | 2024-07-24 14:00 | USCV_ITS ---
Corey Wendy Age: 39 Gender: F : 1985 Exam Date: 07/24/2024 14:42 Ordering Phys: Susana Rojas Technologist: CT Exam Location: [facility] [place]_ Indication: HISTORY: PROCEDURES: FINDINGS: The veins were found to be easily compressible with spontaneous blood flow. Non pulsatile flow pattern. Small caliber superficial veins. No significant venous reflux. CONCLUSIONS No evidence of DVT in the above-mentioned identifiable veins. Small caliber superficial veins bilaterally No severe venous reflux Dr Dari Lopez MD FAC (Electronically Signed) Final Date: 26 July 2024 08:51 S
== END 2024-07-24 14:10 | disposition home or self-care (01) ==
PROVIDERS: PCP Pediatrics; Visit Provider Nurse Practitioner Family
DX: I87.2 Venous insufficiency (chronic) (peripheral) (principal)
CPT/HCPCS: 93970

== ENCOUNTER 2024-07-30 13:51 | Outpatient (CLI) | payer MEDICARE, MEDICAID, SELFPAY ==
--- NOTE | 2024-07-30 13:56 | MM_ITS ---
WS: [id number] DIAGNOSTIC LEFT DIGITAL TOMOSYNTHESIS MAMMOGRAPHY WITH CAD. HISTORY: LT BR CALCS, ABNORMAL MAMMO, 6-month follow-up COMPARISON: 10/27/2023, 10/19/2023, 09/23/2021 Technique: CC, MLO and ML views. Magnification views LEFT breast. Breast composition: The breasts are extremely dense, which lowers the sensitivity of mammography. 5 mm mass with central coarse calcifications in the posterior LEFT breast reidentified. This is above the nipple line and probably near the 2-3 o'clock axis. Calcifications are coarse. There does appear to be a soft tissue nodule associated with the mass. Otherwise no change. No additional abnormalitie s within the LEFT breast. MM/[place] [id number] IMPRESSION: BI-RADS: 3 - Probably Benign FOLLOW UP: 6 Month Follow-up Patient to return in 6 months for her annual mammogram. Additional magnificatio n views and possible ultrasound will be performed of the mass with calcificatio ns against the chest wall. This may be a fibroadenoma.
== END 2024-07-30 13:52 | disposition home or self-care (01) ==
LOC: RAD 13:52
PROVIDERS: PCP Pediatrics; Visit Provider Family Medicine
DX: R92.8 Other abnormal and inconclusive findings on diagnostic imaging of breast (principal); R92.333 Mammographic heterogeneous density, bilateral breasts; R92.1 Mammographic calcification found on diagnostic imaging of breast
CPT/HCPCS: 77061; G0279

== ENCOUNTER → 2024-11-01 14:50 | Outpatient (BNVA) | payer MEDICARE, MEDICAID, SELFPAY | PROVIDERS: PCP Pediatrics; Visit Provider Orthopaedic Surgery | DX: M54.9 Dorsalgia, unspecified (principal) | CPT/HCPCS: 72110; 99204 ==

== ENCOUNTER → 2024-11-06 08:11 | Outpatient (BNVA) | payer MEDICARE, MEDICAID, SELFPAY | PROVIDERS: PCP Pediatrics; Visit Provider Orthopaedic Surgery | DX: S32.030D Wedge compression fracture of third lumbar vertebra, subsequent encounter for fracture with routine healing (principal); X58.XXXD Exposure to other specified factors, subsequent encounter; Z46.89 Encounter for fitting and adjustment of other specified devices | CPT/HCPCS: 99213 ==

== ENCOUNTER 2024-11-06 10:11 | Outpatient (CLI) | payer MEDICARE, MEDICAID, SELFPAY | END 2024-11-06 10:12 | disposition home or self-care (01) | LOC: SPT 10:11 | PROVIDERS: PCP Pediatrics; Visit Provider Orthopaedic Surgery | DX: Z46.89 Encounter for fitting and adjustment of other specified devices (principal); S32.030D Wedge compression fracture of third lumbar vertebra, subsequent encounter for fracture with routine healing; X58.XXXD Exposure to other specified factors, subsequent encounter | CPT/HCPCS: 97760; L0456 ==

== ENCOUNTER → 2024-11-28 10:47 | Outpatient (BNVA) | payer MEDICARE, SELFPAY | PROVIDERS: PCP Pediatrics; Visit Provider Internal Medicine | DX: G90.A Postural orthostatic tachycardia syndrome [POTS] (principal); Z72.0 Tobacco use | CPT/HCPCS: 99214 ==

== ENCOUNTER → 2024-12-11 13:46 | Outpatient (BNVA) | payer MEDICARE, MEDICAID, SELFPAY | PROVIDERS: PCP Pediatrics; Visit Provider Orthopaedic Surgery | DX: M54.50 Low back pain, unspecified (principal); Z09 Encounter for follow-up examination after completed treatment for conditions other than malignant neoplasm | CPT/HCPCS: 72100; 99213 ==

== ENCOUNTER 2024-12-24 12:26 | Outpatient (CLI) | payer MEDICARE, MEDICAID, SELFPAY ==
--- NOTE | 2024-12-24 12:35 | CT_ITS ---
WS: [id number] CT NECK WITH CONTRAST HISTORY: DYSPHAGIA TECHNIQUE: Contiguous 2 mm axial images are performed through the neck with intravenous contrast. Sag ittal and coronal reformats are also submitted. All CT scans at [facility] use at least one o f these dose optimization techniques: automated exposure control; mA and/or kV adjustment per patient size (includes targeted exams where dose is matched to clinical indication); or iterative reconstruc tion. CONTRAST: CONTRAST: Omnipaque 350; 100 mL IV. DLP: 132.86 mGy.cm COMPARISON: None available. There are small bilateral nodules projecting into the vallecula from the preepiglottic space. The lar gest nodule measures 6 x 5 mm on the RIGHT. Similar nodule but slightly smaller on the LEFT. There is no shift of the midline structures. The glossoepiglottic fold is normal. The tongue base is normal. No vocal cord abnormality. Subglottic airway is normal. Marked enlargement of the thyroid. Both thyroid lobes are enlarged. The LEFT thyroid extends over a l ength of 6.8 cm. RIGHT thyroid extends over a length of 5.7 cm. There is a large dominant nodule in t he mid LEFT thyroid measuring 2.9 x 3.1 cm. Bilateral thyroid nodules are present. There is very mild encroachment upon the central airway. No adenopathy. Normal parapharyngeal fat. No osseous abnormalities. Visualized portions of the skull base demonstrate no abnormalities. Orbits and globes are within norm al limits. No soft tissue masses. Small nodules along the anterior maxillary sinuses. No air-fluid levels. 4.3 mm noncalcified nodule RIGHT lung apex. CT/CT neck w con* [id number] IMPRESSION: 1. Small bilateral nodules projecting into the vallecula from the preepiglotti c space. Largest measures 6.5 on the RIGHT. Recommend direct visualization. 2. No enlarged cervical chain lymph nodes. 3. Markedly enlarged nodular goiter. LEFT thyroid extends over a length of 6.8 cm and contains the largest nodule measuring 2.9 x 3.1 cm. 4. 5 mm noncalcified nodule RIGHT apex. Recommend follow-up chest CT in 6 martin hs.
[2024-12-24] MEDS: iohexol 350 mg/mL 500 mL Btl (per mL) IV (12:56)
== END 2024-12-24 12:27 | disposition home or self-care (01) ==
PROVIDERS: PCP Pediatrics; Visit Provider Specialist
DX: R13.10 Dysphagia, unspecified (principal); R93.89 Abnormal findings on diagnostic imaging of other specified body structures; R91.1 Solitary pulmonary nodule; E04.2 Nontoxic multinodular goiter
CPT/HCPCS: 70491

== ENCOUNTER 2025-01-03 08:19 | Outpatient (CLI) | payer MEDICARE, SELFPAY ==
--- NOTE | 2025-01-03 08:30 | FL_ITS ---
WS: [id number] FL barium swallow [id number] REASON FOR EXAM: DYSPHAGIA FLUOROSCOPY TIME: 2min [id number] # OF SPOT FILMS: Multiple TECHNIQUE: Patient was examined in the upright AP and lateral, prone NICHOLS, and supine LPO positions. The swallowing of barium was monitored fluoroscopically and documented with multiple rapid sequence spot films. FINDINGS: The cervical esophagus demonstrated normal motility. There is mild to moderate cricopharyngeus impingement on the posterior cervical esophagus at the C4-C5 level. There is no penetration or aspiration. The thoracic esophagus demonstrated normal motility and anatomy. There is no hiatal hernia. No distal esophageal stricture. No gastroesophageal reflux. FL/FL barium swallow [id number] IMPRESSION: Mild to moderate impingement of the cricopharyngeus on the cervical esophagus a s above.
== END 2025-01-03 08:20 | disposition home or self-care (01) ==
LOC: RAD 08:20
PROVIDERS: PCP Pediatrics; Visit Provider Specialist
DX: R13.10 Dysphagia, unspecified (principal); R93.89 Abnormal findings on diagnostic imaging of other specified body structures
CPT/HCPCS: 74220

== ENCOUNTER → 2025-01-15 14:04 | Outpatient (BNVA) | payer MEDICARE, SELFPAY | PROVIDERS: PCP Pediatrics; Visit Provider Orthopaedic Surgery | DX: Z09 Encounter for follow-up examination after completed treatment for conditions other than malignant neoplasm (principal) | CPT/HCPCS: 72100; 99213 ==

== ENCOUNTER → 2025-05-13 12:14 | Outpatient (BNVA) | payer MEDICARE, SELFPAY | PROVIDERS: PCP Pediatrics; Referring Provider Specialist; Visit Provider Internal Medicine | DX: E04.2 Nontoxic multinodular goiter (principal); E55.9 Vitamin D deficiency, unspecified | CPT/HCPCS: 36415; 80053; 82306; 82310; 83516; 83970; 84439; 84443; 84480; 86376; 86800 ==

== ENCOUNTER 2025-05-14 15:00 | Outpatient (CLI) | payer MEDICARE, SELFPAY ==
[2025-05-14 16:24] LABS: Immunoglobulin IGG 928 mg/dL (700-1600)
[2025-05-14 18:03] LABS: 25 Hydroxy Vitamin D > 120 ng/mL (30-100)
[2025-05-15 14:20] LABS: KAPPA LIGHT CHAIN, FREE, SERUM 12.2 mg/L (3.3-19.4); KAPPA/LAMBDA LIGHT CHAINS FREE 1.42 (0.26-1.65); LAMBDA LIGHT CHAIN, FREE, SERU 8.6 mg/L (5.7-26.3)
[2025-05-16 08:30] LABS: ALBUMIN 4.6 g/dL (3.8-4.8); ALPHA 1 GLOBULIN 0.3 g/dL (0.2-0.3); ALPHA 2 GLOBULIN 0.6 g/dL (0.5-0.9); BETA 1 GLOBULIN 0.3 g/dL (0.4-0.6); BETA 2 GLOBULIN 0.3 g/dL (0.2-0.5); GAMMA GLOBULIN 0.9 g/dL (0.8-1.7)
[2025-05-17 15:44] LABS: Vit D 1,25 (Oh)2, Total 38 pg/mL (18-72); Vit D2 1,25 (Oh)2 <8 pg/mL; Vit D3 1,25 (Oh)2 38 pg/mL
== END 2025-05-14 15:01 | disposition home or self-care (01) ==
PROVIDERS: PCP Family Medicine; Visit Provider Internal Medicine
DX: E55.9 Vitamin D deficiency, unspecified (principal); E04.2 Nontoxic multinodular goiter; E67.3 Hypervitaminosis D
CPT/HCPCS: 36415; 82306; 82652; 82784; 83883; 84155; 84165; 86334

== ENCOUNTER → 2025-05-28 15:01 | Outpatient (BNVA) | payer MEDICARE, SELFPAY | PROVIDERS: PCP Family Medicine; Visit Provider Internal Medicine | DX: I49.9 Cardiac arrhythmia, unspecified (principal); E03.8 Other specified hypothyroidism; G90.A Postural orthostatic tachycardia syndrome [POTS]; Z72.0 Tobacco use | CPT/HCPCS: 99213 ==

== ENCOUNTER 2025-06-17 08:55 | Outpatient (CLI) | payer MEDICARE, SELFPAY ==
--- NOTE | 2025-06-17 09:00 | MM_ITS ---
WS: [id number] DIAGNOSTIC BILATERAL DIGITAL BREAST TOMOSYNTHESIS MAMMOGRAPHY WITH CAD HISTORY: Follow-up calcifications and mass posterior LEFT breast. COMPARISON: 07/30/2024, 10/27/2023, 10/19/2023, 04/14/2022 TECHNIQUE: Bilateral craniocaudad, mediolateral oblique, and mediolateral views are submitted with tomosynthesis and SM. Magnification views LEFT CC and MLO. Computer aided detection utilized. Breast composition: The breasts are extremely dense, which lowers the sensitivity of mammography. Cluster of calcifications in the upper outer quadrant of the RIGHT breast posteriorly against the chest wall. These calcifications have remained stable since 10/27/2023. No associated mass is identified with these calcifications on today's imaging. There has been no progression. There are a few additional scattered benign calcifications within each breast. MM/MM diag tomosynthesis [id number] IMPRESSION: BI-RADS: 3 - Probably Benign FOLLOW UP: 6 Month Follow-up 1. Recommend additional 6-month LEFT breast diagnostic mammogram with magnific ation views of the calcifications. This additional follow-up will evaluate for stability of these calcifications for total of 2 years as recommended. 2. No associated mass is seen today with the calcifications.
== END 2025-06-17 08:56 | disposition home or self-care (01) ==
LOC: RAD 08:56
PROVIDERS: PCP Family Medicine
DX: R92.8 Other abnormal and inconclusive findings on diagnostic imaging of breast (principal); R92.343 Mammographic extreme density, bilateral breasts
CPT/HCPCS: 77062; G0279

== ENCOUNTER → 2025-07-15 12:08 | Outpatient (BNVA) | payer MEDICARE, SELFPAY | PROVIDERS: PCP Family Medicine; Referring Provider Specialist; Visit Provider Internal Medicine | DX: E04.1 Nontoxic single thyroid nodule (principal); E67.3 Hypervitaminosis D; E05.90 Thyrotoxicosis, unspecified without thyrotoxic crisis or storm; N28.9 Disorder of kidney and ureter, unspecified | CPT/HCPCS: 36415; 80048; 82306; 84439; 84443; 84480 ==

== ENCOUNTER → 2025-10-02 14:38 | Outpatient (BNVA) | payer MEDICARE, SELFPAY | PROVIDERS: PCP Family Medicine; Visit Provider Internal Medicine | DX: R07.9 Chest pain, unspecified (principal); G90.A Postural orthostatic tachycardia syndrome [POTS]; Z72.0 Tobacco use | CPT/HCPCS: 99213 ==

== ENCOUNTER 2025-10-11 12:27 | Outpatient (CLI) | payer MEDICARE, SELFPAY ==
[2025-10-11 12:31] VITALS: BMI 22.3
--- NOTE | 2025-10-11 12:31 | ECG_ITS ---
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 Interpretive Statements EXERCISE STRESS TEST EXERCISE DATA: The patient was exercised by Kuldeep protocol. Baseline heart rate was 94 beats per minute. Baseline blood pressure was 87/64 millimeters of mercury. Maximal predicted heart rate was 179 beats per minute. Maximum heart rate achieved was 166 which was 92% of the maximum predicted heart rate. Maximum blood pressure was 157/65 millimeters of mercury. Total exercise time was 9 minutes and 14 seconds. Maximum METs achieved was 13.5. The reason for ending the test was completion of protocol. The patient complained of shortness of breath during the stress test, which then resolved at the end of the test. ELECTROCARDIOGRAM: BASELINE: Showed sinus rhythm, normal axis, no significant ST-T changes at the baseline noted. [] EXERCISE: At the peak exercise level, [] No significant ST-T changes suggestive of ischemia noted. [] RECOVERY: During the recovery period, heart rate dropped appropriately. No significant ST-T changes in the recovery suggestive of ischemia noted. [] CONCLUSION: 1. Exercise capacity is excellent 2. Heart rate response was appropriate 3. Blood pressure response was appropriate. 4. Symptoms not suggestive of ischemia. 5. Stress test does not show evidence of ischemia. Electronically Signed On 10-28-2025 10:06:21 LASERIST by Mamadou Malik M.D. [email or web address]
[2025-10-11 13:14] VITALS: BP 107/67; PULSE 97
== END 2025-10-11 12:28 | disposition home or self-care (01) ==
PROVIDERS: PCP Family Medicine; Visit Provider Internal Medicine
DX: R07.9 Chest pain, unspecified (principal); R06.02 Shortness of breath
CPT/HCPCS: 93017

== ENCOUNTER 2025-10-30 13:01 | Outpatient (CLI) | payer MEDICARE, SELFPAY ==
[2025-10-30 13:54] LABS: Anion Gap 12.9 (5-19); Blood Urea Nitrogen 13 mg/dL (6-20); Calcium 9.2 mg/dL (8.5-10.5); Carbon Dioxide 26 mmol/L (22-29); Chloride 105 mmol/L (98-107); Free T4 Free Thyroxine 0.99 ng/dL (0.82-1.77); Glucose 90 mg/dL (65-115); Osmolality Calculated 290 mOsm/kg (285-295); Potassium 3.9 mmol/L (3.5-5.1); Sodium 140 mmol/L (136-145); Thyroid Stimulating Hormone 0.37 uIU/mL (0.27-4.20)
== END 2025-10-30 13:02 | disposition home or self-care (01) ==
LOC: LAB 13:01
PROVIDERS: PCP Family Medicine; Visit Provider Internal Medicine
DX: E03.9 Hypothyroidism, unspecified (principal); E04.1 Nontoxic single thyroid nodule
CPT/HCPCS: 80048; 84439; 84443; 84480

== ENCOUNTER → 2025-11-04 16:22 | Outpatient (BNVA) | payer MEDICARE, SELFPAY | PROVIDERS: PCP Family Medicine; Visit Provider Internal Medicine Endocrinology, Diabetes & Metabolism | DX: M81.0 Age-related osteoporosis without current pathological fracture (principal) | CPT/HCPCS: 36415; 82310; 82523; 83970; 84075 ==

== ENCOUNTER → 2025-11-06 14:28 | Outpatient (BNVA) | payer MEDICARE, SELFPAY | PROVIDERS: PCP Family Medicine; Visit Provider Nurse Practitioner Family | DX: G90.A Postural orthostatic tachycardia syndrome [POTS] (principal); R07.9 Chest pain, unspecified; R00.2 Palpitations; R06.00 Dyspnea, unspecified; Z72.0 Tobacco use | CPT/HCPCS: 99214 ==

== ENCOUNTER 2025-11-19 15:02 | Outpatient (CLI) | payer MEDICARE, SELFPAY ==
--- NOTE | 2025-11-19 15:00 | USR_ITS ---
PROCEDURE INFORMATION: Exam: US Soft Tissue Head and Neck, Thyroid Exam date and time: 11/19/2025 03:14 PM Age: 40 years old Clinical indication: Condition or disease; Other: Goiter; Additional info: Goiter, include tirads TECHNIQUE: Imaging protocol: Real-time ultrasound scan of the neck with image documentation. Exam focused on the thyroid. COMPARISON: US biopsy/FNA thyroid [id number] 02/11/2023 09:27 AM FINDINGS: Right Lobe: 5.6 x 2.1 x 1.6 cm Left Lobe: 6.1 x 3.1 x 3.3 cm Isthmus: 0.4 cm Overall Parenchymal Echotexture: Heterogenous Thyroid nodule(s): Location: Right mid posterior Size: 1.1 x 0.8 x 1.8 cm Composition: Spongiform, 0 Echogenicity: Hypoechoic, 2 Shape: Wide, 0 Margins: Irregular, 2 Echogenic Foci: None, 0 TOTAL POINTS: 4, TI-RADS 4 Location: Right inferior Size: 0.9 x 1.0 x 1.1 cm Composition: Mixed solid and cystic, 1 Echogenicity: Hypoechoic, 2 Shape: Tall, 3 Margins: Smooth, 0 Echogenic Foci: None, 0 TOTAL POINTS: 6, TI-RADS 4 Location: Left mid Size: 3.4 x 2.5 x 4.1 cm Composition: Mixed cystic and solid, 1 Echogenicity: Hyper or isoechoic, 1 Shape: Wide, 0 Margins: Ill-defined, 0 Echogenic Foci: None, 0 TOTAL POINTS: 2, TI-RADS 2 Location: Left inferior Size: 1.9 x 1.6 x 1.8 cm Composition: Mixed cystic and solid, 1 Echogenicity: Hypoechoic, 2 Shape: Wide, 0 Margins: Lobulated, 2 Echogenic Foci: None, 0 TOTAL POINTS: 5, TI-RADS 4 US/US thyroid [id number] IMPRESSION: Two thyroid nodules on each side. - Follow up recommendations as per the ACR TI-RADS criteria below TI-RADS Classification TR1 - Benign; no FNA TR2 - Not Suspicoius; No FNA TR3 - Mildly Suspicious; FNA if >or= 2.5cm, Follow if >or= 1.5cm TR4 - Moderately Suspicious; FNA if >or= 1.5cm, Follow if >or= 1cm TR5 - Highly Suspicous; FNA if >or= 1cm, Follow if >or= 0.5cm
== END 2025-11-19 15:03 | disposition home or self-care (01) ==
LOC: RAD 15:03
PROVIDERS: PCP Family Medicine; Visit Provider Internal Medicine Endocrinology, Diabetes & Metabolism
DX: E04.2 Nontoxic multinodular goiter (principal); E05.90 Thyrotoxicosis, unspecified without thyrotoxic crisis or storm
CPT/HCPCS: 76536